=== PATIENT | female | born 1960 | race Caucasian/White ===

== ENCOUNTER 2017-05-18 01:55 | Inpatient (IN) | payer OTHER ==
[~2017-05-18] VITALS: Ht 167.6 cm; Wt 98.8 kg
[2017-05-18] MEDS ORDERED: ASPIRIN 81 MG TABLET CHEW ONE (02:45)
[2017-05-18 02:57] LABS: BASOPHILS # (AUTO) 0.04 x10^3/uL (0-0.1); BASOPHILS % (AUTO) 1 % (0-1); EOSINOPHILS # (AUTO) 0.24 x10^3/uL (0-0.4); EOSINOPHILS % (AUTO) 3 % (1-7); LYMPHOCYTES # (AUTO) 2.81 x10^3/uL (1-3.4); LYMPHOCYTES % (AUTO) 33 % (22-44); MD NO; MEAN CORPUSCULAR HEMOGLOBIN 30.4 pg (27.0-34.8); MEAN CORPUSCULAR HGB CONC 33.7 g/dL (32.4-35.8); MEAN PLATELET VOLUME 6.5 fL (7.4-10.4); MONOCYTES # (AUTO) 0.51 x10^3/uL (0.2-0.8); MONOCYTES % (AUTO) 6 % (2-9); NEUTROPHILS % (AUTO) 58 % (42-75); PLATELET COUNT 387 x10^3/uL (130-400); RED BLOOD COUNT 4.74 x10^6/uL (3.82-5.3)
[2017-05-18] MEDS ORDERED: ASPIRIN 81 MG TABLET CHEW PO ONE (03:00)
[2017-05-18 03:09] LABS: ALANINE AMINOTRANSFERASE 27 U/L (12-78); ALBUMIN 3.4 g/dL (3.4-5.0); ANION GAP 7 mmol/L (5-15); CALCIUM 8.5 mg/dL (8.5-10.1); CHLORIDE 109 mmol/L (98-107); CREATININE 0.92 mg/dL (0.55-1.02)
[2017-05-18 03:14] LABS: ALKALINE PHOSPHATASE 82 U/L (45-117); BILIRUBIN,TOTAL 0.2 mg/dL (0.2-1.0); TOTAL PROTEIN 7.1 g/dL (6.4-8.2)
[2017-05-18] MEDS ORDERED: SODIUM CHLORIDE FLUSH 10ML SYR IVF ONE (03:30)
[2017-05-18] MEDS ORDERED: OMNIPAQUE 350 MG/ML, 100ML BOTTLE ONE (04:10)
[2017-05-18] MEDS ORDERED: SODIUM CHLORIDE 0.9% 1,000 ML IV SCH (04:38)
[2017-05-18] MEDS ORDERED: ARIP15TA3 PO (04:46)
[2017-05-18] MEDS ORDERED: DULO30CA2 PO (04:46)
[2017-05-18] MEDS ORDERED: BUPR300T49 PO (04:46)
[2017-05-18] MEDS ORDERED: METO50TA82 PO (04:46)
[2017-05-18] MEDS ORDERED: ACETAMINOPHEN 325 MG TABLET PO PRN (05:00)
[2017-05-18] MEDS ORDERED: hydrALAzine 20 MG/ML, 1ML IVPush PRN (05:00)
[2017-05-18] MEDS ORDERED: NITROGLYCERIN 0.4 MG BOTTLE (25 TABS) SL PRN (05:00)
[2017-05-18] MEDS ORDERED: morphine SULFATE 10 MG/ML, 1ML IVPush PRN (05:00)
[2017-05-18] MEDS ORDERED: DOCUSATE 100 MG CAPSULE PO PRN (05:00)
[2017-05-18] MEDS ORDERED: BISACODYL 10 MG SUPP PR PRN (05:00)
[2017-05-18] MEDS ORDERED: POLYETHYLENE GLYCOL 17 GM PACKET PO PRN (05:00)
[2017-05-18] MEDS ORDERED: OXYcodone IR 5MG TABLET PO PRN (05:00)
[2017-05-18] MEDS ORDERED: ONDANSETRON 2MG/ML, 2ML IVPush PRN (05:00)
[2017-05-18] MEDS ORDERED: ENALAPRILAT 1.25 MG/ML, 2ML IVPush PRN (05:00)
[2017-05-18 05:19] LABS: HEMOGLOBIN A1C 5.4 % (4.2-6.3)
[2017-05-18 05:20] LABS: FREE T4 (FREE THYROXINE) 1.04 ng/dL (0.76-1.46); THYROID STIMULATING HORMONE 6.59 mIU/L (0.358-3.740)
[2017-05-18] MEDS: ASPIRIN 325 MG TABLET EC PO SCH ×3 (06:00→12:01)
[2017-05-18 06:01] VITALS: BP 165/101
[2017-05-18 08:04] VITALS: BP 137/86
[2017-05-18] MEDS: HEPARIN 5,000 UNITS/ML, 1ML SQ SCH ×2 (08:07→16:08)
[2017-05-18] MEDS: DULOXETINE 30 MG CAPSULE.DR PO SCH (08:11)
[2017-05-18] MEDS: BUPROPION HCL PO SCH (09:00)
[2017-05-18] MEDS: ARIPIPRAZOLE 15 MG TABLET PO SCH (09:48)
[2017-05-18 10:23] LABS: MICROSCOPIC INDICATED
[2017-05-18 10:27] LABS: CULTURE INDICATED? YES
[2017-05-18 13:48] LABS: TROPONIN I 0.206 ng/mL (0.000-0.045)
[2017-05-18 14:30] VITALS: BP 135/87
[2017-05-18 21:01] VITALS: BP 135/84
[2017-05-19] MEDS: HEPARIN 5,000 UNITS/ML, 1ML SQ SCH ×3 (00:08→15:04)
[2017-05-19 01:03] VITALS: BP 136/84
[2017-05-19] MEDS: ASPIRIN 325 MG TABLET EC PO SCH (05:06)
[2017-05-19 05:39] LABS: BASOPHILS # (AUTO) 0.02 x10^3/uL (0-0.1); BASOPHILS % (AUTO) 0 % (0-1); EOSINOPHILS # (AUTO) 0.39 x10^3/uL (0-0.4); EOSINOPHILS % (AUTO) 7 % (1-7); LYMPHOCYTES # (AUTO) 2.33 x10^3/uL (1-3.4); LYMPHOCYTES % (AUTO) 39 % (22-44); MD NO; MEAN CORPUSCULAR HEMOGLOBIN 30.6 pg (27.0-34.8); MEAN CORPUSCULAR HGB CONC 33.7 g/dL (32.4-35.8); MEAN CORPUSCULAR VOLUME 90.8 fL (80-100); MEAN PLATELET VOLUME 6.8 fL (7.4-10.4); MONOCYTES # (AUTO) 0.36 x10^3/uL (0.2-0.8); MONOCYTES % (AUTO) 6 % (2-9); NEUTROPHILS # (AUTO) 2.91 x10^3/uL (1.8-6.8); NEUTROPHILS % (AUTO) 48 % (42-75); PLATELET COUNT 339 x10^3/uL (130-400)
[2017-05-19 05:41] LABS: CALCIUM 8.3 mg/dL (8.5-10.1); CHLORIDE 106 mmol/L (98-107)
[2017-05-19 05:48] LABS: ALANINE AMINOTRANSFERASE 25 U/L (12-78); ALBUMIN 3.2 g/dL (3.4-5.0); ALKALINE PHOSPHATASE 82 U/L (45-117); ANION GAP 5 mmol/L (5-15); BILIRUBIN,TOTAL 0.5 mg/dL (0.2-1.0); CHOLESTEROL, TOTAL 213 mg/dL (140-239); CREATININE 0.87 mg/dL (0.55-1.02); HDL CHOL % 33 % (28-40); HDL CHOLESTEROL (DIRECT) 70 mg/dL (40-60); LDL CHOLESTEROL,CALCULATED 116 mg/dL (54-169); LDL/HDL RATIO 1.7 (0.5-3.0); TOTAL PROTEIN 6.7 g/dL (6.4-8.2); TRIGLYCERIDES 136 mg/dL (50-200); VLDL CHOLESTEROL 27 mg/dL (0-25)
[2017-05-19] MEDS ORDERED: REGADENOSON 0.4 MG/5 ML SYRINGE ONE (08:12)
[2017-05-19] MEDS: ARIPIPRAZOLE 15 MG TABLET PO SCH (08:17)
[2017-05-19] MEDS: DULOXETINE 30 MG CAPSULE.DR PO SCH (08:18)
[2017-05-19] MEDS: BUPROPION HCL PO SCH (08:18)
[2017-05-19 08:23] VITALS: BP 148/91
[2017-05-19] MEDS ORDERED: METOPROLOL SUCCINATE 50 MG TAB.ER.24H PO SCH (09:30)
[2017-05-19 15:00] VITALS: BP 159/91
== END 2017-05-19 16:02 | disposition home or self-care (01) | DRG 282 ==
LOC: ED 04:24 → EDIP 04:38 → 5SO 05:58
PROVIDERS: ADMIT Internal Medicine; ATTEND Hospitalist
DX: I21.4 Non-ST elevation (NSTEMI) myocardial infarction (principal); E66.9 Obesity, unspecified; F32.9 Major depressive disorder, single episode, unspecified; I10 Essential (primary) hypertension; I25.10 Atherosclerotic heart disease of native coronary artery without angina pectoris; K80.20 Calculus of gallbladder without cholecystitis without obstruction; Z82.49 Family history of ischemic heart disease and other diseases of the circulatory system; Z88.1 Allergy status to other antibiotic agents; Z79.82 Long term (current) use of aspirin; Z88.8 Allergy status to other drugs, medicaments and biological substances; Z68.35 Body mass index [BMI] 35.0-35.9, adult
CPT/HCPCS: 36415; 71046; 71275; 76700; 78452; 80053; 80061; 81001; 83036; 83735; 84439; 84443; 84484; 85025; 85379; 87086; 93005; 93017; 93306; 99285; J1644; J2785; Q9967; A9502; C9898; J7030